=== PATIENT | female | born 1985 | race Caucasian/White ===

== ENCOUNTER 2016-04-25 06:09 | Emergency (ER) | payer BC, MEDICAID ==
[~2016-04-25] VITALS: Ht 162.6 cm; Wt 100.0 kg
[~2016-04-25 06:09] MED LIST: ABILIFY 15MG TA15 MG PO; AMBIEN 5MG TABLE5 MG PO; CYMBALTA 20MG20 MG PO; DICLEGIS PO; FLAGYL500 MG PO; MOTRIN 800800 MG/TAB PO; NATURAL IRON65 MG PO; PEPCID AC20 MG PO; PERCOCET 325 MG1 TA2 PO; PHENERGAN 25 TA25 MG PO; PRENATAL PO; UNISOM25 MG PO; VITAMIN B-6100 MG; ZYRTEC 10MG10 MG PO
[2016-04-25 06:12] VITALS: BP 115/71; TEMP 97.9
[2016-04-25] MEDS ORDERED: WELLBUTRIN XL150 MG PO (06:17)
[2016-04-25] MEDS ORDERED: CYMBALTA 60MG60 MG PO (06:17)
[2016-04-25] MEDS ORDERED: INDERAL 10MG10 MG PO (06:18)
[2016-04-25] MEDS ORDERED: VYVANSE50 MG PO (06:19)
[2016-04-25] MEDS ORDERED: ULTRAM 50MG TAB50 MG PO (06:40)
[2016-04-25] MEDS ORDERED: FELDENE10 MG PO (06:40)
[2016-04-25 07:19] VITALS: PULSE 77
== END 2016-04-25 07:21 | disposition home or self-care (01) ==
LOC: COL.ER 06:09
DX: M25.562 Pain in left knee (principal); M25.561 Pain in right knee
CPT/HCPCS: J1885

== ENCOUNTER 2016-07-01 14:18 | Emergency (ER) | payer BC, MEDICAID ==
[~2016-07-01] VITALS: Ht 162.6 cm; Wt 100.0 kg
[~2016-07-01 14:18] MED LIST changes: +CYMBALTA 60MG60 MG PO; +FELDENE10 MG PO; +INDERAL 10MG10 MG PO; +ULTRAM 50MG TAB50 MG PO; +VYVANSE50 MG PO; +WELLBUTRIN XL150 MG PO
[2016-07-01 14:21] VITALS: BP 122/71; TEMP 100.2
[2016-07-01] MEDS ORDERED: AMBIEN 5MG TABLE5 MG PO (14:59)
[2016-07-01 15:46] LABS: PH 6 (5-8); URINE APPEARANCE Clear; URINE BACTERIA None Seen /hpf; URINE BILIRUBIN Negative (NEGATIVE); URINE BLOOD Negative (NEGATIVE); URINE COLOR Yellow; URINE GLUCOSE Negative (NEGATIVE); URINE KETONE Negative (NEGATIVE); URINE RBC 0-2 /hpf; URINE UROBILINOGEN Negative (NEGATIVE); URINE WBC 0-2 /hpf
[2016-07-01] MEDS ORDERED: FLEXERIL 1010 MG/TAB PO (16:19)
[2016-07-01 16:29] VITALS: PULSE 97
== END 2016-07-01 16:30 | disposition home or self-care (01) ==
LOC: COL.ER 14:18
PROVIDERS: Physician Assistant
DX: M54.9 Dorsalgia, unspecified (principal)

== ENCOUNTER 2016-07-15 15:04 | Emergency (ER) | payer BC, MEDICAID ==
[~2016-07-15] VITALS: Ht 162.6 cm; Wt 100.0 kg
[~2016-07-15 15:04] MED LIST changes: +FLEXERIL 1010 MG/TAB PO
[2016-07-15 15:16] VITALS: TEMP 97.9
[2016-07-15 18:31] VITALS: BP 107/71; PULSE 95
== END 2016-07-15 18:33 | disposition home or self-care (01) ==
LOC: COL.ER 15:04
DX: G89.29 Other chronic pain (principal); M54.6 Pain in thoracic spine; M54.5 Low back pain
CPT/HCPCS: J1170; J1885; J2360

== ENCOUNTER 2016-08-09 02:49 | Emergency (ER) | payer BC, MEDICAID ==
[~2016-08-09] VITALS: Ht 162.6 cm; Wt 100.0 kg
[2016-08-09 02:51] VITALS: TEMP 98.6
[2016-08-09] MEDS ORDERED: MEDROL 4MG DOSPA4 MG PO (03:16)
[2016-08-09] MEDS ORDERED: ULTRAM 50MG TAB50 MG PO (03:16)
[2016-08-09 03:44] VITALS: BP 113/57; PULSE 91
== END 2016-08-09 03:44 | disposition home or self-care (01) ==
LOC: COL.ER 02:49
DX: M54.42 Lumbago with sciatica, left side (principal)
CPT/HCPCS: J1170; J3360; J7512

== ENCOUNTER 2016-09-13 18:41 | Emergency (ER) | payer BC, MEDICAID ==
[~2016-09-13] VITALS: Ht 162.6 cm; Wt 95.5 kg
[~2016-09-13 18:41] MED LIST changes: +MEDROL 4MG DOSPA4 MG PO
[2016-09-13 18:50] VITALS: TEMP 98.7
[2016-09-13 20:50] LABS: PH 5 (5-8); URINE APPEARANCE Hazy; URINE BACTERIA None Seen /hpf; URINE BILIRUBIN Negative (NEGATIVE); URINE BLOOD Negative (NEGATIVE); URINE COLOR Amber; URINE GLUCOSE Negative (NEGATIVE); URINE KETONE Trace (NEGATIVE); URINE RBC 0-2 /hpf; URINE UROBILINOGEN Negative (NEGATIVE)
[2016-09-13 21:07] LABS: BASO % 0.4 % (0.0-2.0); EOS # 0.1 (0.0-0.7); EOS % 0.8 % (0-4.0); GRAN # 5.4 (1.4-6.5); GRAN % 58.4 % (42.2-75.2); HEMATOCRIT 39.7 % (37.0-47.0); HEMOGLOBIN 13.7 g/dl (12.5-16.0); LYMPH # 3.1 (1.2-3.4); LYMPH % 33.5 % (20.0-51.0); MEAN CELL VOLUME 81 fl (80.0-100.0); MEAN CORPUSCULAR HEMOGLOBIN 28 pg (27.0-31.0); MEAN CORPUSCULAR HGB CONC 35 g/dl (33.0-37.0); MEAN PLATELET VOLUME 9.8 fl (7.4-10.4); MONO # 0.6 (0.1-0.6); MONO % 6.6 % (1.7-9.3); PLATELET COUNT 299 K/mm3 (130-400); RED BLOOD COUNT 4.89 M/mm3 (4.10-5.30); REDCELL DISTRIBUTION WIDTH-CV 14.3 % (11.5-14.5); WHITE BLOOD COUNT 9.3 K/mm3 (4.8-10.8)
[2016-09-13 21:24] LABS: ADJUSTED CALCIUM 8.9 mg/dL (8.4-10.2); ALBUMIN 4.7 gm/dL (3.5-5.0); BILIRUBIN,TOTAL 1.2 mg/dL (0.0-1.0); CALCIUM 9.5 mg/dL (8.4-10.2); CREATININE, serum 0.84 mg/dL (0.52-1.25); POTASSIUM 3.9 mmol/L (3.4-5.0); TOTAL PROTEIN 8.8 gm/dL (6.4-8.2)
[2016-09-13 22:42] VITALS: BP 127/68; PULSE 87
== END 2016-09-13 22:44 | disposition home or self-care (01) ==
LOC: COL.ER 18:41
PROVIDERS: Nurse Practitioner
DX: R10.31 Right lower quadrant pain (principal); J45.909 Unspecified asthma, uncomplicated; F41.9 Anxiety disorder, unspecified; F32.9 Major depressive disorder, single episode, unspecified; F90.9 Attention-deficit hyperactivity disorder, unspecified type; Z98.890 Other specified postprocedural states
CPT/HCPCS: J1170; J2405; J7030

== ENCOUNTER 2016-09-14 22:02 | Emergency (ER) | payer BC, MEDICAID ==
[~2016-09-14] VITALS: Ht 162.6 cm; Wt 95.5 kg
[2016-09-14 22:04] VITALS: TEMP 99.1
[2016-09-14 22:40] LABS: BASO % 0.5 % (0.0-2.0); EOS # 0.1 (0.0-0.7); EOS % 1.5 % (0-4.0); GRAN # 2.9 (1.4-6.5); GRAN % 47.7 % (42.2-75.2); LYMPH # 2.6 (1.2-3.4); LYMPH % 42.5 % (20.0-51.0); MEAN CELL VOLUME 82 fl (80.0-100.0); MEAN CORPUSCULAR HGB CONC 34 g/dl (33.0-37.0); MONO # 0.5 (0.1-0.6); MONO % 7.5 % (1.7-9.3); RED BLOOD COUNT 4.25 M/mm3 (4.10-5.30); WHITE BLOOD COUNT 6.2 K/mm3 (4.8-10.8)
[2016-09-14 22:41] LABS: HEMATOCRIT 34.8 % (37.0-47.0); HEMOGLOBIN 11.8 g/dl (12.5-16.0); MEAN CORPUSCULAR HEMOGLOBIN 28 pg (27.0-31.0); PLATELET COUNT 223 K/mm3 (130-400)
[2016-09-14 22:47] LABS: ADJUSTED CALCIUM 9.2 mg/dL (8.4-10.2); ALBUMIN 3.9 gm/dL (3.5-5.0); BILIRUBIN,TOTAL 0.7 mg/dL (0.0-1.0); CALCIUM 9.1 mg/dL (8.4-10.2); CREATININE, serum 0.85 mg/dL (0.52-1.25); POTASSIUM 4.1 mmol/L (3.4-5.0); TOTAL PROTEIN 7.1 gm/dL (6.4-8.2)
[2016-09-14 22:55] LABS: PH 6 (5-8); SQUAMOUS EPITHELIAL 0-2 /hpf; URINE APPEARANCE Clear; URINE BACTERIA None Seen /hpf; URINE BILIRUBIN Negative (NEGATIVE); URINE BLOOD Negative (NEGATIVE); URINE COLOR Yellow; URINE GLUCOSE Negative (NEGATIVE); URINE KETONE Negative (NEGATIVE); URINE RBC None Seen /hpf; URINE UROBILINOGEN Negative (NEGATIVE)
[2016-09-14 23:03] VITALS: BP 110/60; PULSE 96
== END 2016-09-14 23:03 | disposition home or self-care (01) ==
LOC: COL.ER 22:02
PROVIDERS: Family Medicine
DX: R10.11 Right upper quadrant pain (principal); J45.909 Unspecified asthma, uncomplicated; F32.9 Major depressive disorder, single episode, unspecified; F41.9 Anxiety disorder, unspecified; F90.9 Attention-deficit hyperactivity disorder, unspecified type; Z98.890 Other specified postprocedural states

== ENCOUNTER → 2016-09-25 | Outpatient (CLI) | payer BC, MEDICAID ==
[~2016-09-25] MED LIST changes: +CLEOCIN HCL300 MG PO; +LOVAZA1 GM PO; +MAGNESIUM250 M1 PO; +MINIPRESS2 MG PO; +MOBIC15 MG PO; +PROAIR HFA0.09 MG/AC IH; +ROBAXIN 75750 MG/TAB PO; +TURMERIC500 MG PO; +VITAMIND3 5000 PO; +VYVANSE70 MG PO; +WELLBUTRIN XL300 M1 PO
== END ==
LOC: COL.RAD 10:30
DX: R16.0 Hepatomegaly, not elsewhere classified (principal); K76.0 Fatty (change of) liver, not elsewhere classified

== ENCOUNTER 2016-11-08 14:08 | Emergency (ER) | payer BC, MEDICAID ==
[~2016-11-08] VITALS: Ht 162.6 cm; Wt 95.5 kg
[~2016-11-08 14:08] MED LIST changes: -CLEOCIN HCL300 MG PO; -LOVAZA1 GM PO; -MAGNESIUM250 M1 PO; -MINIPRESS2 MG PO; -MOBIC15 MG PO; -PROAIR HFA0.09 MG/AC IH; -ROBAXIN 75750 MG/TAB PO; -TURMERIC500 MG PO; -VITAMIND3 5000 PO; -VYVANSE70 MG PO; -WELLBUTRIN XL300 M1 PO
[2016-11-08 14:12] VITALS: BP 105/65; PULSE 111; TEMP 98.6
[2016-11-08] MEDS ORDERED: ULTRAM 50MG TAB50 MG PO (14:36)
[2016-11-08] MEDS ORDERED: MINIPRESS2 MG PO (14:48)
[2016-11-08] MEDS ORDERED: ROBAXIN 75750 MG/TAB PO (14:49)
[2016-11-08] MEDS ORDERED: PROAIR HFA0.09 MG/AC IH (14:49)
[2016-11-08] MEDS ORDERED: CLEOCIN HCL300 MG PO (14:49)
[2016-11-08] MEDS ORDERED: VITAMIND3 5000 PO (14:50)
[2016-11-08] MEDS ORDERED: MAGNESIUM250 M1 PO (14:50)
[2016-11-08] MEDS ORDERED: MOBIC15 MG PO (14:50)
[2016-11-08] MEDS ORDERED: WELLBUTRIN XL300 M1 PO (14:50)
[2016-11-08] MEDS ORDERED: LOVAZA1 GM PO (14:51)
[2016-11-08] MEDS ORDERED: VYVANSE70 MG PO (14:51)
== END 2016-11-08 15:14 | disposition home or self-care (01) ==
LOC: COL.ER 14:08
DX: M25.572 Pain in left ankle and joints of left foot (principal); F41.9 Anxiety disorder, unspecified; F32.9 Major depressive disorder, single episode, unspecified

== ENCOUNTER 2016-11-25 12:00 | Emergency (ER) | payer BC, MEDICAID ==
[~2016-11-25] VITALS: Ht 162.6 cm; Wt 95.5 kg
[~2016-11-25 12:00] MED LIST changes: +CLEOCIN HCL300 MG PO; +LOVAZA1 GM PO; +MAGNESIUM250 M1 PO; +MINIPRESS2 MG PO; +MOBIC15 MG PO; +PROAIR HFA0.09 MG/AC IH; +ROBAXIN 75750 MG/TAB PO; +VITAMIND3 5000 PO; +VYVANSE70 MG PO; +WELLBUTRIN XL300 M1 PO
[2016-11-25 12:10] VITALS: TEMP 98.7
[2016-11-25 12:49] LABS: BASO # 0.1 (0.0-0.2); BASO % 0.7 % (0.0-2.0); EOS # 0.1 (0.0-0.7); EOS % 1.9 % (0-4.0); GRAN # 4.4 (1.4-6.5); GRAN % 62.3 % (42.2-75.2); LYMPH # 2.1 (1.2-3.4); MEAN CELL VOLUME 82 fl (80.0-100.0); MEAN CORPUSCULAR HEMOGLOBIN 28 pg (27.0-31.0); MEAN CORPUSCULAR HGB CONC 34 g/dl (33.0-37.0); MONO # 0.3 (0.1-0.6); MONO % 4.7 % (1.7-9.3); PLATELET COUNT 230 K/mm3 (130-400); RED BLOOD COUNT 4.25 M/mm3 (4.10-5.30); REDCELL DISTRIBUTION WIDTH-CV 13.4 % (11.5-14.5)
[2016-11-25] MEDS ORDERED: TURMERIC500 MG PO (12:58)
[2016-11-25 13:00] LABS: HEMATOCRIT 34.9 % (37.0-47.0)
[2016-11-25 13:09] LABS: ANION GAP 11 mmol/L (7-16); BLOOD UREA NITROGEN 19 mg/dL (7-17); CALCIUM 9.4 mg/dL (8.4-10.2); CARBON DIOXIDE 24 mmol/L (22-30); CHLORIDE 102 mmol/L (98-107); CREATININE, serum 0.74 mg/dL (0.52-1.25); GLUCOSE 141 mg/dL (74-106); POTASSIUM 3.7 mmol/L (3.4-5.0); SODIUM 137 mmol/L (137-145)
[2016-11-25 13:26] LABS: TROPONIN-I < 0.012 ng/mL (0.000-0.034)
[2016-11-25 14:00] VITALS: BP 120/71; PULSE 98
== END 2016-11-25 14:02 | disposition home or self-care (01) ==
LOC: COL.ER 12:00
PROVIDERS: Emergency Medicine
DX: R07.9 Chest pain, unspecified (principal); R00.0 Tachycardia, unspecified; F32.9 Major depressive disorder, single episode, unspecified; F41.9 Anxiety disorder, unspecified; J45.909 Unspecified asthma, uncomplicated

== ENCOUNTER 2016-11-29 07:41 | Emergency (ER) | payer BC, MEDICAID ==
[~2016-11-29] VITALS: Ht 162.6 cm; Wt 95.5 kg
[~2016-11-29 07:41] MED LIST changes: +TURMERIC500 MG PO
[2016-11-29 07:45] VITALS: BP 120/71; TEMP 98
[2016-11-29 08:25] LABS: BASO % 0.5 % (0.0-2.0); EOS # 0.1 (0.0-0.7); EOS % 1.9 % (0-4.0); GRAN # 3.7 (1.4-6.5); GRAN % 58.8 % (42.2-75.2); HEMOGLOBIN 12.2 g/dl (12.5-16.0); LYMPH # 2.2 (1.2-3.4); LYMPH % 34.1 % (20.0-51.0); MEAN CELL VOLUME 83 fl (80.0-100.0); MEAN CORPUSCULAR HEMOGLOBIN 28 pg (27.0-31.0); MEAN CORPUSCULAR HGB CONC 34 g/dl (33.0-37.0); MEAN PLATELET VOLUME 9.7 fl (7.4-10.4); MONO # 0.3 (0.1-0.6); MONO % 4.4 % (1.7-9.3); PLATELET COUNT 227 K/mm3 (130-400); RED BLOOD COUNT 4.37 M/mm3 (4.10-5.30); REDCELL DISTRIBUTION WIDTH-CV 13.4 % (11.5-14.5); WHITE BLOOD COUNT 6.3 K/mm3 (4.8-10.8)
[2016-11-29 08:29] LABS: PH 5 (5-8); SQUAMOUS EPITHELIAL 0-2 /hpf; URINE APPEARANCE Clear; URINE BACTERIA Rare /hpf; URINE BILIRUBIN Negative (NEGATIVE); URINE BLOOD Negative (NEGATIVE); URINE COLOR Yellow; URINE GLUCOSE Negative (NEGATIVE); URINE KETONE Negative (NEGATIVE); URINE RBC 0-2 /hpf; URINE UROBILINOGEN Negative (NEGATIVE); URINE WBC 0-2 /hpf
[2016-11-29 08:33] LABS: HEMATOCRIT 36.2 % (37.0-47.0)
[2016-11-29 08:39] LABS: ADJUSTED CALCIUM 9.2 mg/dL (8.4-10.2); ALBUMIN 4.2 gm/dL (3.5-5.0); BILIRUBIN,TOTAL 0.6 mg/dL (0.0-1.0); C-REACTIVE PROTEIN 1.7 mg/dL (0.0-0.9); CALCIUM 9.4 mg/dL (8.4-10.2); CREATININE, serum 0.77 mg/dL (0.52-1.25); POTASSIUM 3.6 mmol/L (3.4-5.0); TOTAL PROTEIN 7.7 gm/dL (6.4-8.2)
[2016-11-29] MEDS ORDERED: FLAGYL500 MG PO (10:40)
[2016-11-29 10:41] LABS: CHLAMYDIA/TRACH by PCR Female NOT DETECTED; NEISSERIA GON by PCR Female NOT DETECTED
[2016-11-29 10:56] VITALS: PULSE 83
== END 2016-11-29 10:55 | disposition home or self-care (01) ==
LOC: COL.ER 07:41
PROVIDERS: Physician Assistant
DX: N83.201 Unspecified ovarian cyst, right side (principal); N76.0 Acute vaginitis; Z98.51 Tubal ligation status; F32.9 Major depressive disorder, single episode, unspecified; Z98.890 Other specified postprocedural states
CPT/HCPCS: J1885

== ENCOUNTER → 2016-12-01 | Outpatient (CLI) | payer OTHER | LOC: COL.RAD 09:44 | DX: M47.816 Spondylosis without myelopathy or radiculopathy, lumbar region (principal); M43.12 Spondylolisthesis, cervical region; M47.812 Spondylosis without myelopathy or radiculopathy, cervical region ==

== ENCOUNTER → 2017-09-21 | Outpatient (CLI) | payer MEDICAID | LOC: MHCPAIN 12:58 | DX: G89.29 Other chronic pain (principal); M47.817 Spondylosis without myelopathy or radiculopathy, lumbosacral region; M54.16 Radiculopathy, lumbar region; M53.3 Sacrococcygeal disorders, not elsewhere classified | CPT/HCPCS: G0463 ==

== ENCOUNTER → 2018-01-07 | Outpatient (CLI) | payer MEDICAID | LOC: MHCPAIN 08:52 | DX: G89.29 Other chronic pain (principal); M47.817 Spondylosis without myelopathy or radiculopathy, lumbosacral region; M54.16 Radiculopathy, lumbar region; M53.3 Sacrococcygeal disorders, not elsewhere classified | CPT/HCPCS: G0463 ==

== ENCOUNTER → 2018-01-20 | Outpatient (CLI) | payer MEDICAID | LOC: MHCPAIN 13:24 | DX: M47.817 Spondylosis without myelopathy or radiculopathy, lumbosacral region (principal); M54.16 Radiculopathy, lumbar region | CPT/HCPCS: J1040; Q9967 ==

== ENCOUNTER → 2018-08-09 | Outpatient (CLI) | payer MEDICAID | LOC: MHCPAIN 15:27 | DX: G89.29 Other chronic pain (principal); M47.817 Spondylosis without myelopathy or radiculopathy, lumbosacral region; M54.16 Radiculopathy, lumbar region; M53.3 Sacrococcygeal disorders, not elsewhere classified | CPT/HCPCS: G0463 ==

== ENCOUNTER → 2018-09-07 | Outpatient (CLI) | payer MEDICAID | LOC: MHCPAIN 10:37 | DX: G89.29 Other chronic pain (principal); M47.817 Spondylosis without myelopathy or radiculopathy, lumbosacral region; M54.16 Radiculopathy, lumbar region; M53.3 Sacrococcygeal disorders, not elsewhere classified | CPT/HCPCS: G0463 ==

== ENCOUNTER → 2018-12-21 | Outpatient (CLI) | payer MEDICAID | LOC: MHCPAIN 10:34 | DX: G89.29 Other chronic pain (principal); M47.817 Spondylosis without myelopathy or radiculopathy, lumbosacral region; M54.16 Radiculopathy, lumbar region; M53.3 Sacrococcygeal disorders, not elsewhere classified | CPT/HCPCS: G0463 ==